=== PATIENT | male | born 1980 | race Caucasian/White ===

== ENCOUNTER 2019-05-10 21:12 | Observation (INO) ==
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
[2019-05-10] MEDS ORDERED: *HR* HYDROcodone/Acet 5/325 mg TABLET PO ONE (23:08)
[2019-05-11] MEDS ORDERED: Naloxone 0.4 MG/ML INJ IVP PRN (01:06)
[2019-05-11] MEDS ORDERED: Isovue-370 500 ML BOTTLE IVP ONE (02:50)
[2019-05-11 03:15] LABS: Basophils % 0.4 %; Eosinophils # 0.2 K/mcL (0.0-0.6); Eosinophils % 2.3 %; Hematocrit 38.2 % (37.5-50.1); Hemoglobin 12.8 g/dL (12.9-16.9); Immature Granulocytes % 0.3 % (0-4); Lymphocytes # 2.3 K/mcL (0.6-4.6); Lymphocytes % 22.8 %; Mean Corpuscular HGB Conc 33.5 g/dL (31.6-35.5); Mean Corpuscular Hemoglobin 33.2 pg (28.0-33.3); Mean Corpuscular Volume 99.2 fL (83.0-100.0); Mean Platelet Volume 9.5 fL (9.4-12.4); Monocytes % 9.8 %; Neutrophils # 6.4 K/mcL (1.6-8.9); Platelet Count 258 K/mcL (140-400); Red Blood Count 3.85 M/mcL (4.19-5.50); Red Cell Distribution Width 13.3 % (11.5-14.5); Segmented Neutrophils % 64.4 %; White Blood Count 9.9 K/mcL (4.3-11.1)
[2019-05-11] MEDS ORDERED: *HR* HYDROmorphone 2 MG TABLET PO PRN (03:26)
[2019-05-11] MEDS ORDERED: *HR* HYDROcodone/Acet 5/325 mg TABLET PO PRN (03:28)
[2019-05-11] MEDS ORDERED: Acetaminophen 325 MG TABLET PO PRN (03:28)
[2019-05-11] MEDS ORDERED: Ondansetron 4 MG/2 ML VIAL IVP PRN (03:28)
[2019-05-11 03:31] LABS: Alanine Aminotransferase 66 Units/L (7-52); Albumin/Globulin Ratio 1.9 (1.1-2.2); Alkaline Phosphatase 84 Units/L (34-104); Aspartate Amino Transferase 63 Units/L (13-39); BUN/Creatinine Ratio 6 (6-26); Bilirubin,Total 0.7 mg/dL (0.3-1.0); Blood Urea Nitrogen 6 mg/dL (6-20); Calcium 8.9 mg/dL (8.6-10.3); Carbon Dioxide 28 mEq/L (23-29); Chloride 102 mEq/L (98-107); Globulin 2.1 g/dL (2.4-3.5); Glucose 105 mg/dL (70-105); Osmolality,Calculated 286 (280-300); Potassium 3.7 mEq/L (3.5-5.1); Sodium 139 mEq/L (136-145); Total Protein 6.1 g/dL (6.4-8.9); eGFR For African Americans > 60 (> 60); eGFR For Non-African Americans > 60 (> 60)
[2019-05-11 03:58] LABS: Chol/HDL Ratio 4.8 (0-4.9); Cholesterol 177 mg/dL (< 200); HDL Cholesterol 37 mg/dL (40-59); LDL Cholesterol,Calculated 111 mg/dL (0-99); Magnesium 1.8 mg/dL (1.6-2.6); Triglycerides 144 mg/dL (< 150)
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
[2019-05-11] MEDS ORDERED: *HR* FentaNYL (PF) 100 MCG/2 ML VIAL IVP PRN (07:59)
[2019-05-11] MEDS ORDERED: Nicotine 14 MG PATCH.TD24 TD PRN (17:17)
--- NOTE | 2019-05-11 17:57 | Internal Med Progress Note ---
Hospitalist Progress Note - Encounter Date of Encounter: 05/11/19 - Exam Vitals: Temp Pulse Resp BP Pulse Ox 97.5 F L 80 15 133/85 96 05/11/19 16:47 05/11/19 16:47 05/11/19 16:47 05/11/19 16:47 05/11/19 16:47 - Time Spent with Patient Total time spent is greater than 50% in coordination of care (as documented) at patient's floor/unit and/or counseling patient: Internal Medicine: Result - Labs CBC & Chem 7: 05/11/19 03:03 05/11/19 03:02 Labs: Short CBC 05/11/19 Range/Units 03:03 WBC 9.9 (4.3-11.1) K/mcL Hgb 12.8 L (12.9-16.9) g/dL Hct 38.2 (37.5-50.1) % Plt Count 258 (140-400) K/mcL Neutrophils # 6.4 (1.6-8.9) K/mcL BMP 05/11/19 03:02 Sodium 139 Potassium 3.7 Chloride 102 Carbon Dioxide 28 BUN 6 Creatinine 1.04 Glucose 105 Calcium 8.9 Liver Function 05/11/19 Range/Units 03:02 Total Bilirubin 0.7 (0.3-1.0) mg/dL AST 63 H (13-39) Units/L ALT 66 H (7-52) Units/L Alkaline Phosphatase 84 (34-104) Units/L Albumin 4.0 (3.5-5.7) g/dL - Impressions Impressions Chest X-Ray 05/11/19 04:53 IMPRESSION: No acute cardiopulmonary disease. D/ / 05/11/2019 08:37:50 Parish Aggarwal MD / comfort morse Interpreting Provider: Parish Aggarwal MD Echocardiogram 05/11/19 07:33 Impressions: LVEF 65%. Normal LV chamber size, wall thickness and function. Normal left ventricular diastolic function. Normal right ventricular structure and function. Unable to estimate RVSP due to lack of TR jet. No significant valvular dysfunction. Left Ventricular Wall Motion: Rest Echo Findings All wall segments showed normal motion. Findings: Study Quality * Technically adequate exam. ECG Findings * Normal sinus rhythm. Left Ventricle * LVEF 65%. * Normal LV chamber size, wall thickness and function. * Normal left ventricular diastolic function. Right Ventricle * Normal right ventricular structure and function. Left Atrium * Normal left atrial size. Right Atrium * Normal right atrial size. Interatrial Septum * Interatrial septum not well evaluated. Aortic Valve * Aortic valve not well visualized. * No aortic stenosis. * No aortic regurgitation. Mitral Valve * Normal mitral valve structure and function. * No mitral regurgitation. * No mitral stenosis. Tricuspid Valve * Normal tricuspid valve structure and function. * No tricuspid regurgitation. * Unable to estimate RVSP due to lack of TR jet. Pulmonic Valve * Pulmonic valve not well visualized. Aorta * Normally sized aortic root. Pericardium * There is a trivial pericardial effusion present. IVC * Normal IVC dimensions and inspiratory collapse. Pulmonary Artery * Normal visualized portions of the main pulmonary artery. Lower Extremity CT 05/11/19 07:37 IMPRESSION: Acute traumatic fractures of the distal tibia involving the tibial plafond and medial malleolus. Small cortical avulsion fracture of the inferior tip of the lateral malleolus. Associated soft tissue swelling surrounding the ankle with tibiotalar joint effusion. Subcutaneous edema of the right lower leg. No specific evidence of compartment syndrome. No evidence of intramuscular edema/hematoma or fluid along the muscular fascial planes. D/ / 05/11/2019 09:31:44 Kaleb Jurado MD / lauri frye Interpreting Provider: Kaleb Jurado MD Consult Discharge Plan - Plan Referrals: NONE,PCP [Primary Care Provider] -
--- NOTE | 2019-05-11 18:17 | Event Note ---
<Naveed Mayen - Last Filed: 05/11/19 18:19> Date of Encounter: 05/11/19 Time of Encounter: 10:22 Patient seen and examined at bedside this morning. He reports that his right leg is still painful, but his pain has improved. Right lower extremity is wrapped, but swelling is visible in the right foot. CT scan of the lower extremity showed subcutaneous edema of the right lower leg without specific evidence of compartment syndrome; no evidence of intramuscular edema, hematoma, or fluid along the muscular fascial planes. Patient's hemoglobin dropped; will monitor closely. Orthopedics is consulted; would appreciate further recommendations. He denies numbness or tingling in his lower extremity. He has no further complaints. He has a documented history of alcohol use; will initiate CIWA protocol. <David Nicole - Last Filed: 05/11/19 18:22> Date of Encounter: 05/11/19 I saw evaluated and examined this patient and reviewed objective data including labs and my medical decision-making was reviewed with the Resident Physician. I agree with the documented findings, disposition and treatment plan as described except to any changes set forth below. We independently had [id number] contact with the patient.
[2019-05-11] MEDS ORDERED: *HR* LORazepam 2 MG/ML VIAL IVP PRN (18:19)
[2019-05-11] MEDS ORDERED: diazePAM 10 MG/2 ML SYRINGE IVP PRN (18:19)
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
--- NOTE | 2019-05-11 21:39 | Electrocardiograph Report ---
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
[2019-05-12] MEDS ORDERED: *HR* LORazepam 2 MG/ML VIAL IVP ONE (04:23)
[2019-05-12 05:13] LABS: Hematocrit 38.3 % (37.5-50.1); Hemoglobin 12.8 g/dL (12.9-16.9); Mean Corpuscular HGB Conc 33.4 g/dL (31.6-35.5); Mean Corpuscular Hemoglobin 33.6 pg (28.0-33.3); Mean Corpuscular Volume 100.5 fL (83.0-100.0); Mean Platelet Volume 9.8 fL (9.4-12.4); Platelet Count 266 K/mcL (140-400); Red Blood Count 3.81 M/mcL (4.19-5.50); Red Cell Distribution Width 13.2 % (11.5-14.5); White Blood Count 8.4 K/mcL (4.3-11.1)
[2019-05-12 05:30] LABS: BUN/Creatinine Ratio 9 (6-26); Blood Urea Nitrogen 10 mg/dL (6-20); Calcium 9.1 mg/dL (8.6-10.3); Carbon Dioxide 28 mEq/L (23-29); Chloride 100 mEq/L (98-107); Glucose 128 mg/dL (70-105); Osmolality,Calculated 283 (280-300); Potassium 3.8 mEq/L (3.5-5.1); Sodium 136 mEq/L (136-145); eGFR For African Americans > 60 (> 60); eGFR For Non-African Americans > 60 (> 60)
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
[2019-05-12 11:11] VITALS: BP 151/89
== END 2019-05-12 13:00 | disposition home or self-care (01) ==
LOC: EMEROOARM 21:12 → 3NENU 21:12 → SUATTDRO 05-11 03:28
PROVIDERS: ADMIT Internal Medicine; ATTEND Student in an Organized Health Care Education/Training Program